=== PATIENT | male | born 1985 | race Two or more races ===

== ENCOUNTER 2025-03-23 18:30 | Emergency (ER) | payer OTHER, SELFPAY ==
[2025-03-23 18:33] VITALS: BP 142/92
[2025-03-23 18:50] LABS: % Basophils 0.6 % (0-2); % Eosinophils 12.3 % (0-6); % Immature Granulocytes 0.3 % (0-0.5); % Lymphocytes 12.9 % (20.5-51.1); % Monocytes 7.5 % (1.7-9.3); % Neutrophils 66.4 % (42.2-75.2); Absolute Basophils 0.1 10^3/uL (0-0.2); Absolute Eosinophils 1.6 10^3/uL (0-0.7); Absolute Lymphocytes 1.7 10^3/uL (1.2-3.4); Absolute Neutrophils 8.5 10^3/uL (1.4-6.5); Hematocrit 41.2 % (39.0-52.0); Hemoglobin 14.2 g/dL (13.0-18.0); Mean Corp Hgb Conc. 34.5 g/dL (33.0-37.0); Mean Corpuscular Hgb 28.7 pg (27.0-31.0); Mean Corpuscular Volume 83.4 fL (80.0-94.0); Mean Platelet Volume 11.2 fL (7.4-10.4); Nucleated Red Blood Cells % 0 % (-); Platelet Count 208 10^3/uL (130-400); Red Blood Cell Count 4.94 10^6/uL (4.70-6.10); White Blood Cell Count 12.8 10^3/uL (4.8-10.8)
[2025-03-23 19:13] LABS: ALT (SGPT) 53 U/L (0-50); AST (SGOT) 41 U/L (17-59); Albumin 4.5 g/dl (3.5-5.0); Alkaline Phosphatase 78 U/L (38-126); Blood Urea Nitrogen 15 mg/dl (9-20); Calcium 9.2 mg/dl (8.4-10.2); Carbon Dioxide 25 mmol/L (22-30); Chloride 108 mmol/L (98-107); Glucose 126 mg/dl (70-99); Potassium 3.8 mmol/L (3.5-5.1); Sodium 140 mmol/L (135-145); Total Bilirubin 0.4 mg/dl (0.2-1.3); Total Protein 7.3 g/dl (6.3-8.2); eGFR > 60.00
[2025-03-23 22:06] VITALS: BP 132/95
[2025-03-23 23:39] VITALS: BP 117/87
[2025-03-24] VITALS: BP 122/88
--- NOTE | 2025-03-24 00:11 | ED.GENMED ---
History of Present Illness
General
Chief Complaint: Cough
Source: patient
Exam Limitations: none
Time Seen by Provider: 03/23/25 23:45
Nursing documentation reviewed up to this point in time: agreed with
History of Present Illness
History of Present Illness:
39-year-old male presenting with concerns of cough for about a month. Having difficulty sleeping secondary to this. Has noticed some significant nasal congestion and postnasal drip as well. Did not take any medications other than some nasal
sprays at home. Denies any chest pain or shortness of breath.
Review of Systems
Review of Systems
Allergies reviewed?: Yes
All Other Systems: ROS reviewed and negative except as documented in HPI and ROS
Phy Exam
Physical Exam
Physical Exam:
GENERAL: Alert , in no apparent distress
EYE: pupils equal and reactive
NECK: Supple, no significant adenopathy.
ENT: Swollen boggy nasal turbinates, postnasal drip o/p clr, mmm.
CARDIAC: Regular rate and rhythm .
LUNGS: Clear breath sounds bilaterally, no acute respiratory distress, no wheezes/rales/rhonchi
ABDOMEN: Soft, without focal tenderness, no r/g, no cvat
NEUROLOGICAL: Alert and oriented, no focal neuro deficits
SKIN: Warm and dry, skin intact.
MUSCULOSKELETAL: No edema, well perfused.
PSYCH: Normal and appropriate interaction.
Course
Orders/Labs/Results
Orders:
Orders
03/23/25 18:37
CR Chest - 2 Views Urgent
Comment:
Reason For Exam: cough x1 month
03/23/25 18:44
Complete Blood Count/With Diff Urgent
Comprehensive Metabolic Panel Urgent
03/24/25 00:10
Dexamethasone [Decadron] 10 mg PO NOW STA
Abnormal Lab Results
03/23/25
18:44
WBC 12.8 H 10^3/uL
(4.8-10.8)
MPV 11.2 H fL
(7.4-10.4)
Absolute Neuts (auto) 8.5 H 10^3/uL
(1.4-6.5)
Absolute Monos (auto) 1.0 H 10^3/uL
(0.1-0.6)
Absolute Eos (auto) 1.6 H 10^3/uL
(0-0.7)
Lymphocytes % 12.9 L %
(20.5-51.1)
Eosinophils % 12.3 H %
(0-6)
Chloride 108 H mmol/L
(98-107)
Glucose 126 H mg/dl
(70-99)
ALT 53 H U/L
(0-50)
03/23/25 18:44
03/23/25 18:44
Vital Signs
Initial and Last Documented VS:
Initial Vital Signs
Temp Pulse Resp BP Pulse Ox
99.0 F 106 17 142/92 99
03/23/25 18:33 03/23/25 18:33 03/23/25 18:33 03/23/25 18:33 03/23/25 18:33
Last Documented Vital Signs
Temp Pulse Resp BP Pulse Ox
99.0 F 88 17 117/87 96
03/23/25 18:33 03/23/25 22:06 03/23/25 18:33 03/23/25 23:39 03/23/25 23:45
MDM/Problems Addressed
MDM/Problems Addressed:
39-year-old male presenting to the emergency department today with concerns of cough over the past month. Vital signs here unremarkable patient no distress does have postnasal drip and swollen boggy nasal turbinates. Chest x-ray normal lungs are
clear. Patient potentially with ongoing cough due to postnasal drip plan for treatment with steroid otherwise advised for close outpatient follow-up. Return precautions given.
*Critical Care Note
Total Time (30-74mins, 75-104mins- exclusive of procedures): Not Applicable
ED Attending Note
-
Portions of this chart may have been created with voice recognition software.� Occasional wrong word or��sound alike� substitutions may have occurred due to the inherent limitations of voice recognition software.
Discharge Plan
Departure
Patient Disposition: Home (Routine Discharge)
Date of Disposition: 03/24/25
Time of Disposition: 00:12
Patient with high blood pressure during this ER visit?: No
Condition: Good
Covid-19: Not Applicable
Discharge Problem:
Post-nasal drip
Instructions: Cough in adults
Prescriptions:
New
methylprednisolone [Medrol (Barry)] 4 mg tablets,dose pack
See Rx Instructions .ROUTE .COMPLEX Qty: 21 0RF
Rx Instructions:
for 6 days
Referrals:
UNKNOWN - PT DOES,NOT KNOW [Family Provider] -
Activity Restrictions/Additional Instructions:
You came to the emergency department today with concerns of ongoing cough. This is likely secondary to postnasal drip. Please take the prescribed medication and stay hydrated. Return for any worsening, new or concerning symptoms.
Interventions
Interventions:
*Risk Screen - Suicide Last Done: 03/23/25 18:39
*General Assessment Last Done: 03/23/25 18:39
*Neglect/Abuse Screening Last Done: 03/23/25 18:39
*ED COVID-19 Vaccine History Last Done: 03/23/25 18:39
Discharge Date and Time
Print Language: GIBRALTARIAN
[2025-03-24] MEDS: DECADRON 10 MG PO (00:24)
== END 2025-03-24 00:36 | disposition home or self-care (01) ==
LOC: EMR 18:30
PROVIDERS: Student in an Organized Health Care Education/Training Program; EMERGENCY PHYSICIAN Student in an Organized Health Care Education/Training Program
DX: R09.82 Postnasal drip (principal)
CPT/HCPCS: 99283; 71046; 80053; 85025

== ENCOUNTER 2025-10-08 19:23 | Emergency (ER) | payer OTHER, SELFPAY ==
[2025-10-08 19:35] VITALS: BP 143/101
[2025-10-08 22:53] VITALS: BP 138/91
--- NOTE | 2025-10-09 00:32 | ED.GENMED ---
History of Present Illness
General
Chief Complaint: Headache
Source: patient
Exam Limitations: none
Time Seen by Provider: 10/09/25 00:02
Nursing documentation reviewed up to this point in time: agreed with
History of Present Illness
History of Present Illness:
Note:
CHIEF COMPLAINT(S)
Neck pain, headache
Frisian translation used via language line to aid in history
HISTORY OF PRESENT ILLNESS
The patient is a 39-year-old male with no past medical history who presents today with concerns of neck pain and a headache for approximately 1 week. He feels like the pain started in her neck and traveled to the back of the head and front causing
a headache. He feels like his neck feels stiff. He reports that he feels like he has too hold his to the right when his pain gets worse. The He notes that the pain started after he began leaning forward frequently while using a phone, which may
have contributed to his symptoms. He denies any falls or head trauma. He denies any injury to the neck. He denies any shortness of breath or chest pain. The patient denies any recent trauma or falls and denies nausea, vomiting, visual changes,
or dizziness at the time of presentation. He reports the pain is sore to touch and notes that he went to urgent care previously a few days ago initiated him on medications, including possibly a steroid, as well as muscle relaxant which initially
helped with some of the neck pain but the headaches seem to persist and return with worsening. The patient does not take blood thinners. He denies any facial droop, versus other blurry vision, visual loss. Denies any recent chiropractic
manipulation or massage to the neck. He denies any fevers.
PHYSICAL EXAM
Nursing notes reviewed and vital signs reviewed.
General: Patient is well appearing and in no acute distress; non-toxic
Skin: Warm and dry, no rashes or lesions
Head: Normocephalic, atraumatic
Eyes: Sclera non-icteric. EOMs intact.
Neck: Tenderness to palpation noted in the paracervical muscles. No midline spinal tenderness. Full range of motion of the cervical spine.
Cardiac: Regular rate
Peripheral Vascular: No lower extremity swelling or edema
Pulm: Normal respiratory effort, no wheezes, rales, or rhonchi
Abdomen: No abdominal tenderness to palpation
Neuro: CN II-XII intact, no focal neurologic deficits. 5 out of 5 strength in bilateral upper and lower extremities. No facial droop. Normal speech. Normal finger-nose, [id number].
Psychiatric: Appropriate mood and affect.
PLAN
Administer intravenous medication for pain relief.
Conduct blood tests for further evaluation.
Order imaging studies to assess cervical spine and rule out possible disc disease or other underlying causes.
Order CT scan of the head
DIFFERENTIAL DIAGNOSIS
The Differential Diagnosis includes, in no particular order and is not limited to:
- Cervical disc herniation
- Cervical spondylosis
- Cervicogenic headache
- Peripheral neuropathy
- Brachial plexus injury
- Transient ischemic attack (TIA)
- Stroke
- Multiple sclerosis
- Migraine
- Radiculopathy
CHART REVIEW
Reviewed ER physician documentation from 03/24/2025, patient seen for postnasal drip, had unremarkable workup with clear chest x-ray
No records in external medical summary to review
SUMMARY OF ENCOUNTER
The patient was evaluated in the emergency department for neck pain associated with numbness in the right thumb. Pain management and further diagnostic testing, including imaging, were proposed to identify any structural issues contributing to the
symptoms.
39-year-old male presents to the ER today with concerns of neck pain and a headache. Patient reports that he was on a break from work after his hand injury and reports that has been looking at his phone a lot and that he may have hyperflexed his
neck. He reports that the symptoms have been persistent for a week. No trauma noted to the head or neck. Physical exam, patient is well-appearing no acute distress. He is good range of motion cervical spine, no focal neurodeficits, good upper
extremity strength. He was given Toradol and Reglan which significantly improved his symptoms he felt like he is able to move his neck easier. CT scan negative for any acute intracranial abnormality. CT of the cervical spine shows no acute
abnormalities. Suspect cervicogenic headache and torticollis, discussed follow-up with PCP and Ortho. Discussed strict return precautions including neurologic symptoms. Patient stable at discharge. Okay with plan. Questions answered.
DIAGNOSIS
Neck pain with numbness (ICD-10: M54.2)
Possible cervical radiculopathy (ICD-10: M54.12)
MEDICAL DECISION MAKING
- Number and Complexity of Problems Addressed:
Chronic conditions affecting care.
Differential diagnosis includes cervical disc herniation, cervical spondylosis, etc.
- Data:
Category 1:
Tests and documents reviewed, including any prior urgent care medication records mentioned.
Category 3:
Management decisions made for imaging studies and pain management plan.
-Risk:
Consideration of Admission/Observation: Escalation of care including admission/observation was considered given the complexity and risk of the patients presenting complaint, exam findings, and/or their underlying comorbidities. However, ultimately,
the patient is safe for outpatient management with close follow-up. Reasoning: Work-up reassuring, does not reveal any acute life/organ-threatening processes, patients symptoms well controlled upon reevaluation, reexamination is reassuring, vitals
are stable, patient agreeable with discharge, reliable for follow-up.
Phy Exam
Physical Exam
Physical Exam:
see hpi
Course
Orders/Labs/Results
Orders:
Orders
10/09/25 00:23
CT Cervical Spine W/o Iv Contr Urgent
Comment:
Reason For Exam: neck pain, stiffness
CT Head W/o Iv Contrast Urgent
Comment:
Reason For Exam: persistent daily headache
Ketorolac [Toradol] 30 mg IV NOW STA
Metoclopramide [Reglan] 10 mg IV NOW STA
10/09/25 00:44
Complete Blood Count/With Diff Urgent
Comprehensive Metabolic Panel Urgent
Abnormal Lab Results
10/09/25
00:44
WBC 12.3 H 10^3/uL
(4.8-10.8)
MPV 10.8 H fL
(7.4-10.4)
Abs Immat Gran (auto) 0.1 H 10^3/uL
(0-0.05)
Absolute Neuts (auto) 6.9 H 10^3/uL
(1.4-6.5)
Absolute Lymphs (auto) 3.8 H 10^3/uL
(1.2-3.4)
Absolute Monos (auto) 1.2 H 10^3/uL
(0.1-0.6)
Monocytes % 10.0 H %
(1.7-9.3)
Sodium 134 L mmol/L
(135-145)
Glucose 104 H mg/dl
(70-99)
ALT 54 H U/L
(0-50)
10/09/25 00:44
10/09/25 00:44
Vital Signs
Initial and Last Documented VS:
Initial Vital Signs
Temp Pulse Resp BP Pulse Ox
97.9 F 100 18 143/101 96
10/08/25 19:35 10/08/25 19:35 10/08/25 19:35 10/08/25 19:35 10/08/25 19:35
Last Documented Vital Signs
Temp Pulse Resp BP Pulse Ox
97.9 F 85 18 120/80 98
10/08/25 19:35 10/09/25 02:24 10/09/25 02:24 10/09/25 02:24 10/09/25 02:24
*Pulse Oximetry
SaO2: 97
Oxygen Mode of Delivery: Room air
Patient hypoxic: no
*Critical Care Note
Total Time (30-74mins, 75-104mins- exclusive of procedures): Not Applicable
ED Attending Note
-
Portions of this chart may have been created with voice recognition software.� Occasional wrong word or��sound alike� substitutions may have occurred due to the inherent limitations of voice recognition software.
Discharge Plan
Departure
Patient Disposition: Home (Routine Discharge)
Date of Disposition: 10/09/25
Time of Disposition: 03:07
Patient with high blood pressure during this ER visit?: Yes
Condition: Good
Discharge Problem:
Cervicogenic migraine
Instructions: Torticollis (DC), BLOOD PRESSURE
Prescriptions:
No Action
methylprednisolone [Medrol (Barry)] 4 mg tablets,dose pack
See Rx Instructions .ROUTE .COMPLEX Qty: 21 0RF
Rx Instructions:
for 6 days
Referrals:
Kurt Martel MD [Family Provider, Internal Medicine]
Twin Musa MD [Active, Orthopedics] - Call in 1-3 days for appt
Activity Restrictions/Additional Instructions:
Please finish last dose of prednisone.
PLEASE RETURN TO THE ER SHOULD YOU DEVELOP FACIAL DROOP, NUMBNESS OR TINGLING IN YOUR EXTREMITIES, INABILITY TO AMBULATE, CONFUSION, DIFFICULTY SPEAKING, CHEST PAIN, SHORTNESS OF BREATH, INTRACTABLE NAUSEA OR VOMITING, OR ANY OTHER SIGNS OR SYMPTOMS
CONCERNING TO YOU.
Please call the attached number to schedule appointment with spinal specialist. Please follow-up with PCP in 1 week for reassessment.

Interventions
Interventions:
*Risk Screen - Suicide Last Done: 10/08/25 19:35
*General Assessment Last Done: 10/08/25 22:48
*Neglect/Abuse Screening Last Done: 10/08/25 19:35
*ED COVID-19 Vaccine History Last Done: 10/08/25 22:48
*ED Influenza Vaccine History Last Done: 10/08/25 22:48
[facility] Fall Risk Assessment Tool Last Done: 10/08/25 22:48
*Nursing Disposition Last Done: 10/09/25 03:20
ED- Neurological Assessment Last Done: 10/08/25 23:02
Discharge Date and Time
Discharge Date/Time: 10/09/25 03:21
Print Language: SLOVAK
[2025-10-09] MEDS: TORADOL 30 MG IV (00:43)
[2025-10-09] MEDS: REGLAN 10 MG IV (00:44)
[2025-10-09 00:47] VITALS: BP 119/73
[2025-10-09 01:03] LABS: Hematocrit 41.4 % (39.0-52.0); Hemoglobin 14.4 g/dL (13.0-18.0); Mean Corp Hgb Conc. 34.8 g/dL (33.0-37.0); Mean Corpuscular Volume 82.6 fL (80.0-94.0); Nucleated Red Blood Cells % 0 % (-); Platelet Count 280 10^3/uL (130-400); Red Cell Dist. Width 12.6 % (11.5-14.5)
[2025-10-09 01:26] LABS: ALT (SGPT) 54 U/L (0-50); AST (SGOT) 30 U/L (17-59); Albumin 4.3 g/dl (3.5-5.0); Alkaline Phosphatase 83 U/L (38-126); Blood Urea Nitrogen 15 mg/dl (9-20); Calcium 8.9 mg/dl (8.4-10.2); Carbon Dioxide 29 mmol/L (22-30); Chloride 99 mmol/L (98-107); Glucose 104 mg/dl (70-99); Potassium 4.3 mmol/L (3.5-5.1); Sodium 134 mmol/L (135-145); Total Protein 7.2 g/dl (6.3-8.2); eGFR > 60.00
[2025-10-09 02:24] VITALS: BP 120/80
== END 2025-10-09 03:21 | disposition home or self-care (01) ==
LOC: EMR 19:23
PROVIDERS: Physician Assistant; EMERGENCY PHYSICIAN Emergency Medicine; FAMILY PHYSICIAN Internal Medicine
DX: G43.909 Migraine, unspecified, not intractable, without status migrainosus (principal); M54.2 Cervicalgia
CPT/HCPCS: 99284; 96374; 96375; 70450; 72125; 80053; 85025